=== PATIENT | male | born 2000 | race American Indian/Alaskan Native ===

== ENCOUNTER 2021-01-18 09:07 | Emergency (ER) | payer OTHER ==
[2021-01-18 09:15] VITALS: BP 139/82
[2021-01-18] MEDS ORDERED: IBUPROFEN 600 MG TAB PO ONE (09:50)
--- NOTE | 2021-01-18 10:33 | Cat Scan Report ---
CT ORBITS HISTORY: Left orbital swelling. COMPARISON: None. TECHNIQUE: Axial images of the orbits were obtained. Coronal reformats were generated. CONTRAST: 100 ml of Omnipaque 300 FINDINGS: Facial bones: No fracture or other signficant abnormality. Paranasal sinuses: Minimal mucosal thickening in the left maxillary sinus. Otherwise, clear.. Orbits: Significant left periorbital soft tissue swelling. No post septal extension. Visualized images of the intracranial space: No significant abnormality. Additional findings: None. IMPRESSION: 1. Significant left periorbital soft tissue swelling without postseptal extension. Findings could b e related to preseptal cellulitis. Signer Name: Tyler Leal MD Signed: 01/18/2021 10:28 AM Workstation Name: [id number]
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
[2021-01-18] MEDS ORDERED: BUPIVACAINE/PF (0.25%) 2.5 MG/ML 30 ML VIAL INFILTRATI NR (12:00)
[2021-01-18] MEDS ORDERED: ACETAMINOPHEN 500 MG TAB PO ONE (13:15)
== END 2021-01-18 13:25 | disposition home or self-care (01) ==
LOC: ED 09:07 → EEVIPCON 09:07 → ED 13:25
DX: S01.112A Laceration without foreign body of left eyelid and periocular area, initial encounter (principal); Y04.0XXA Assault by unarmed brawl or fight, initial encounter; Y93.89 Activity, other specified; Y92.89 Other specified places as the place of occurrence of the external cause; Y99.8 Other external cause status
CPT/HCPCS: 70486; 99283